=== PATIENT | male | born 1965 | race Two or more races ===

== ENCOUNTER 2023-10-18 09:54 | Outpatient (CLI) | payer OTHER, SELFPAY ==
[2023-10-18 13:48] LABS: Basophils Absolute Auto 0.1 K/mm3 (0.0-0.1); Basophils Percent Auto 0.8 % (0.2-1.2); Eosinophils Absolute Auto 0.5 K/mm3 (0-0.3); Eosinophils Percent Auto 4.6 % (0-4.4); Hemoglobin 15.5 g/dL (14.0-18.0); Immature Granulocyte Absolute 0.04 K/mm3 (0.00-0.031); Immature Granulocyte Percent A 0.4 % (0-0.5); Lymphocytes Absolute Auto 2.48 K/mm3 (0.9-3.2); Lymphocytes Percent Auto 24.7 % (18.3-44.2); Mean Corpuscular HGB Conc 32.3 g/dl (32-36); Mean Corpuscular Hemoglobin 29.1 pg (26-34); Mean Corpuscular Volume 90.1 fl (80-100); Mean Platelet Volume 10.7 fl (7.4-10.4); Monocytes Absolute Auto 0.9 K/mm3 (0.1-0.6); Monocytes Percent Auto 8.4 % (2.6-8.5); Neutrophils Absolute Auto 6.2 K/mm3 (1.3-6.7); Neutrophils Percent Auto 61.1 % (45.5-73.1); Platelet Count Result 297 k/mm3 (150-375); Red Blood Count 5.33 M/mm3 (4.6-6.20); Red Cell Distribution Width 13.1 % (11.5-14.5); White Blood Count 10.1 K/mm3 (4.5-10.0)
[2023-10-18 14:01] LABS: Appearance Urine Clear (Clear); Bacteria Urine None Seen /hpf; Bilirubin Urine Negative (Negative); Blood Urine Non-Hemolyzed Trace (Negative); Color Urine Yellow (Yellow); Glucose Urine UA Negative (Negative); Ketones Urine Negative (Negative); Leukocyte Esterase Ur Negative LEU/UL (Negative); Nitrate Urine Negative (Negative); Non Pathogenic Casts 0-2; Protein Urine Negative (Negative); RBC Urine 0-2 /hpf (0-2); Specific Grav Ur 1.019 (1.001-1.035); Squamous Epithelial Cell Urine None Seen /hpf (Few); WBC Urine 0-5 /hpf (0-3)
[2023-10-18 14:20] LABS: Add Urine Microscopic? YES
[2023-10-18 15:11] LABS: Creatinine Urine 110.8 mg/dL
[2023-10-18 15:16] LABS: MALB Creatinine Ratio 19.9 mg/g (0-30); Microalbumin Urine Random 22.1 mg/L (0-16.7)
[2023-10-18 16:27] LABS: Alanine Aminotransferase 23 U/L (6-50); Albumin Level 4.8 g/dL (3.5-5.1); Alkaline Phosphatase 71 U/L (38-126); Anion Gap 11 mmol/L (4-12); Aspartate Amino Transferase 65 U/L (17-59); Bilirubin,Total 0.8 mg/dL (0.2-1.3); Blood Urea Nitrogen 27 mg/dL (9-20); Calcium 9.1 mg/dL (8.4-10.2); Carbon Dioxide 22 mmol/L (22-30); Chloride 108 mmol/L (98-107); Cholesterol 174 mg/dL (0-200); Estimated Glomerular Filt Rate > 60; Glucose 103 mg/dL (65-110); HDL Direct 32 mg/dL; Potassium 3.9 mmol/L (3.4-5.0); Sodium 141 mmol/L (137-145); Triglycerides 97 mg/dL (<150)
[2023-10-18 16:39] LABS: LDL Cholesterol Direct 120 mg/dL
[2023-10-18 16:57] LABS: Prostate Specific Antigen 1.2 ng/mL (< OR = 4.0)
[2023-10-18 17:06] LABS: HIV 1/2 Ab P24 Ag Result Negative (Negative)
[2023-10-18 18:41] LABS: Hemoglobin A1C 5.4 % (<5.7)
[2023-10-18 18:58] LABS: Hepatitis C Virus Antibody Negative (Negative)
[2023-10-20 01:48] LABS: Hepatitis B Core Ab Total NON-REACTIVE (NON-REACTIVE)
[2023-10-23 04:58] LABS: Herpes Simplex Type 1 DNA PCR NOT DETECTED; Herpes Simplex Type 2 DNA PCR NOT DETECTED
== END 2023-10-18 09:55 | disposition home or self-care (01) ==
LOC: ANHGOSHLAB 09:56
PROVIDERS: PCP Clinical Nurse Specialist; Visit Provider Clinical Nurse Specialist
DX: Z12.5 Encounter for screening for malignant neoplasm of prostate (principal); R35.0 Frequency of micturition; R73.9 Hyperglycemia, unspecified; R39.9 Unspecified symptoms and signs involving the genitourinary system; Z13.220 Encounter for screening for lipoid disorders; Z13.29 Encounter for screening for other suspected endocrine disorder; R03.0 Elevated blood-pressure reading, without diagnosis of hypertension
CPT/HCPCS: 36415; 80053; 80061; 81001; 81003; 82043; 83036; 84153; 84443; 85025; 86703; 86704; 86803; 87529; G0103; G0432

== ENCOUNTER 2025-04-17 09:29 | Outpatient (CLI) | payer OTHER, SELFPAY ==
--- NOTE | ~2025-04-17 | XR_ITS ---
EXAMINATION: XR chest 2V, 04/17/2025 9:42 OPERATIONAL RISK CONSULTANT HISTORY: Other chest pain, chest pain when bending over x 1 month COMPARISON: No comparisons available. Technique: 2 views obtained. Findings: The lungs are clear, no effusion. No pneumothorax. Heart is normal size. Mediastinal and hilar contours are within normal limits. Bony thorax no acute abnormality. Impression: No acute cardiopulmonary abnormality. Reviewed, dictated and finalized at location P. ATIONAL RISK CONSULTANT Impression: No acute cardiopulmonary abnormality.
== END 2025-04-17 09:30 | disposition home or self-care (01) ==
PROVIDERS: PCP Clinical Nurse Specialist; Visit Provider Clinical Nurse Specialist
DX: R07.89 Other chest pain (principal)
CPT/HCPCS: 71046

== ENCOUNTER 2025-04-30 08:49 | Outpatient (CLI) | payer OTHER, SELFPAY ==
--- OUTSIDE RECORDS SUMMARY | 2025-04-30 09:15 | XMS_ITS | Clinical Summary ---
Author Organization [facility] Address [address] [place] [address] Care Team Providers Care Tripe Washer Name Role Phone Lino Lynch MD Primary Care Provider [phone] Source Comments [facility],non-owned Affiliates and Associated Physician Practices is amultiple site organization consisting of ambulatory clinics and hospital sitesin [place], [place], [place]. This disclosure is being madepursuant to the Care Everywhere program and may not contain all information available regarding this patient. Last updated 18.[facility] Allergies No known active allergies Medications * Be aware that medications may not be up to date on this document. Alwaysverify current medications with the patient. No known medications Social History Tobacco Use Types Packs/Day Years Used Date Smoking Tobacco: Never Smokeless Tobacco: Never Sex and Gender Information Value Date Recorded Sex Assigned at Not on file Legal Sex Male 7:02 PM CDT Gender Identity Not on file Sexual Orientation Not on file Last Filed Vital Signs Vital Sign Reading Time Taken Comments Blood Pressure 142/98 08/24/2017 9:59 AM CDT Pulse 95 08/24/2017 9:59 AM CDT Temperature 36.9 C (98.4 F) 08/24/2017 9:59 AM CDT Respiratory Rate 18 08/24/2017 9:59 AM CDT Oxygen Saturation 97% 08/24/2017 9:59 AM CDT Inhaled Oxygen Concentration - - Weight 93 kg (205 lb) 08/24/2017 9:59 AM CDT Height 177.8 cm (5' 10) 08/24/2017 9:59 AM CDT Body Mass Index 29.41 08/24/2017 9:59 AM CDT Plan of Treatment Health Maintenance Due Date Last Done Comments NATALIO (AGES 45-75) - COL ON CA SCREENING 1966 COLON MONITORING 1966 COLONOSCOPY - COLON CA SCREENING 1966 CT COLONOGRAPHY - COLON CA SCREENING 1966 Colorectal Cancer Screening 1966 FIT - COLON CA SCREENING 1966 FLEX SIG - COLON CA SCREENING 1966 LIPID TESTING 1966 HIV SCREENING 1981 HEPATITIS C SCREENING 08/18/1984 DTAP/TDAP/TD VACCINES (1 - Tdap) 1985 HEPATITIS B VACCINE (1 of 3 - 19+ 3-dose series) 1985 PNEUMOCOCCAL VACCINE 50+ (1 of 1 - PCV) 2016 ZOSTER VACCINE (1 of 2) 2016 SCREENING FOR DIABETES 08/24/2017 DEPRESSION SCREENING 05/28/2024 COVID-19 VACCINE (1 - 2024-2 6 season) 2025 INFLUENZA VACCINE (#1) 2025 HIB VACCINE Aged Out No longer eligi ble based on patient's age to complete this topic HPV VACCINE Aged Out No longer eligi ble based on patient's age to complete this topic MENINGOCOCCAL (Group B) VACC INE SHARED DECISION-MAKING Aged Out No longer eligibl e based on patient's age to complete this topic MENINGOCOCCAL GROUPS A/C/Y/W VACCINE Aged Out No longer eligible b ased on patient's age to complete this topic Insurance [employer] Care Teams Tripe Washer Relationship Specialty Start Date End Date Lino Lynch MD [address] [place] [address] PCP - General Internal Medicine 08/24/17
--- OUTSIDE RECORDS SUMMARY | 2025-04-30 09:15 | XMS_ITS | Clinical Summary ---
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 Resolved Problems Problem Noted Date Diagnosed Date Resolved Date Renal colic 07/04/2019 08/01/2019 Ureteral calculus 07/04/2019 08/01/2019 Family History Medical History Relation Comments Cancer Father Cancer Mother Relation Status Comments Father Mother Social History Tobacco Use Types Packs/Day Years Used Date Smoking Tobacco: Never Smokeless Tobacco: Never Alcohol Use Standard Drinks/Week Comments Yes 0 (1 standard drink = 0.6 oz pur e alcohol) occassional Sex and Gender Information Value Date Recorded Sex Assigned at Not on file Legal Sex Male 1:14 PM COMMUNITY SPORTS COORDINATOR Gender Identity Not on file Sexual Orientation Not on file Last Filed Vital Signs Vital Sign Reading Time Taken Comments Blood Pressure 147/94 07/04/2019 2:15 PM COMMUNITY SPORTS COORDINATOR Pulse 69 07/04/2019 2:15 PM COMMUNITY SPORTS COORDINATOR Temperature 36.9 C (98.5 F) 07/02/2019 1:23 PM COMMUNITY SPORTS COORDINATOR Respiratory Rate 18 07/04/2019 2:15 PM COMMUNITY SPORTS COORDINATOR Oxygen Saturation 97% 07/02/2019 3:36 PM COMMUNITY SPORTS COORDINATOR Inhaled Oxygen Concentration - - Weight 95.1 kg (209 lb 11.2 oz) 07/04/2019 2:15 PM COMMUNITY SPORTS COORDINATOR Height 177.8 cm (5' 10) 07/02/2019 1:23 PM COMMUNITY SPORTS COORDINATOR Body Mass Index 30.09 07/02/2019 1:23 PM COMMUNITY SPORTS COORDINATOR Plan of Treatment Health Maintenance Due Date Last Done Comments Colorectal Cancer Screening Colonoscopy (10 Years) 1966 Annual Physical 1969 Hepatitis C 1984 DTaP, Tdap and Td Vaccines ( 1 - Tdap) 1985 Hepatitis B Vaccines (1 of 3 - 19+ 3-dose series) 1985 Pneumococcal Vaccine: 50+ Ye ars (1 of 1 - PCV) 2016 Zoster Vaccines (1 of 2) 2016 COVID-19 Vaccine (1 - 2024-2 6 season) 2025 Influenza Adult (#1) 2025 Hepatitis A Vaccines Aged Out No long er eligible based on patient's age to complete this topic Meningococcal B Vaccine Aged Out No l onger eligible based on patient's age to complete this topic Meningococcal Vaccine Aged Out No moustapha maría eligible based on patient's age to complete this topic RSV Immunizations Under 20 Months Aged Out No longer eligible based on patient's age to complete this topic Insurance [employer] [place] Care Teams Sports Centre Manager Relationship Specialty Start Date End Date Reema Milton MD [address] [place] [address] PCP - General FAMILY PRACTICE 07/02/19
[2025-04-30 14:23] LABS: Hematocrit 48.3 % (42.0-52.0); Hemoglobin 15.7 g/dL (14.0-18.0); Immature Granulocyte Percent A 0.2 % (0-0.5); Lymphocytes Absolute Auto 2.55 K/mm3 (0.9-3.2); Mean Corpuscular HGB Conc 32.5 g/dl (32-36); Mean Corpuscular Hemoglobin 29.0 pg (26-34); Mean Corpuscular Volume 89.3 fl (80-100); Nucleated Red Blood Cells Absolute Auto 0.000 K/mm3 (0.0-0.012); Nucleated Red Blood Cells Perc 0.0 % (0.0-0.2); Platelet Count Result 291 k/mm3 (150-375); Red Blood Count 5.41 M/mm3 (4.6-6.20); White Blood Count 9.9 K/mm3 (4.5-10.0)
[2025-04-30 14:31] LABS: Alanine Aminotransferase 25 U/L (6-50); Albumin Level 4.5 g/dL (3.5-5.1); Alkaline Phosphatase 72 U/L (38-126); Anion Gap 5 mmol/L (4-12); Aspartate Amino Transferase 54 U/L (17-59); Bilirubin,Total 0.8 mg/dL (0.2-1.3); Blood Urea Nitrogen 26 mg/dL (9-20); Calcium 9.5 mg/dL (8.4-10.2); Carbon Dioxide 27 mmol/L (22-30); Chloride 107 mmol/L (98-107); Cholesterol 208 mg/dL (0-200); Estimated Glomerular Filt Rate > 60; Glucose 91 mg/dL (65-110); HDL Direct 32 mg/dL; Potassium 4.3 mmol/L (3.4-5.0); Sodium 139 mmol/L (137-145); Total Protein 8.0 g/dL (6.3-8.2); Triglycerides 145 mg/dL (<150)
[2025-04-30 15:07] LABS: Prostate Specific Antigen 1.2 ng/mL (< OR = 4.0)
[2025-04-30 16:01] LABS: Hemoglobin A1C 5.7 % (<5.7)
[2025-04-30 16:05] LABS: MALB Creatinine Ratio 5.1 mg/g (0-30)
== END 2025-04-30 08:50 | disposition home or self-care (01) ==
LOC: ANHGOSHLAB 08:50
PROVIDERS: PCP Clinical Nurse Specialist; Visit Provider Clinical Nurse Specialist
DX: R74.01 Elevation of levels of liver transaminase levels (principal); R03.0 Elevated blood-pressure reading, without diagnosis of hypertension; R73.01 Impaired fasting glucose; Z13.220 Encounter for screening for lipoid disorders; Z13.29 Encounter for screening for other suspected endocrine disorder; Z12.5 Encounter for screening for malignant neoplasm of prostate
CPT/HCPCS: 36415; 80053; 80061; 82043; 83036; 84153; 85025; G0103

== ENCOUNTER 2025-05-18 09:07 | Outpatient (CLI) | payer OTHER, SELFPAY ==
--- OUTSIDE RECORDS SUMMARY | 2025-05-18 09:54 | XMS_ITS | Clinical Summary ---
Author Organization [facility] [employer] Address [address] [place] [address] Care Team Providers Care Airplane Dispatch Clerk Name Role Phone Lino Lynch MD Primary Care Provider [phone] Source Comments [facility] [employer],non-owned Affiliates and Associated Physician Practices is amultiple site organization consisting of ambulatory clinics and hospital sitesin [place], [place], [place] and [place]. This disclosure is being madepursuant to the Care Everywhere program and may not contain all information available regarding this patient. Last updated 18.[facility] [employer] Allergies No known active allergies Medications * [...] complete this topic Insurance [employer]ET[employer] Care Teams Airplane Dispatch Clerk Relationship Specialty Start Date End Date Lino Lynch MD [address] [place] [address] PCP - General Internal Medicine 08/24/17
--- OUTSIDE RECORDS SUMMARY | 2025-05-18 09:54 | XMS_ITS | Clinical Summary ---
Author Organization [facility] Address [address] [place] [address] Care Team Providers Care Ramp Service Agent Name Role Phone Reema Milton MD Primary Care Provider [phone] Allergies No known active allergies Medications No [...] on file Legal Sex Male 1:14 PM BREAST SPLITTER Gender Identity Not on file Sexual Orientation Not on file Last Filed Vital Signs Vital Sign Reading Time Taken Comments Blood Pressure 147/94 07/04/2019 2:15 PM BREAST SPLITTER Pulse 69 07/04/2019 2:15 PM BREAST SPLITTER Temperature 36.9 C (98.5 F) 07/02/2019 1:23 PM BREAST SPLITTER Respiratory Rate 18 07/04/2019 2:15 PM BREAST SPLITTER Oxygen Saturation 97% 07/02/2019 3:36 PM BREAST SPLITTER Inhaled Oxygen Concentration - - Weight 95.1 kg (209 lb 11.2 oz) 07/04/2019 2:15 PM BREAST SPLITTER Height 177.8 cm (5' 10) 07/02/2019 1:23 PM BREAST SPLITTER Body Mass Index 30.09 07/02/2019 1:23 PM BREAST SPLITTER Plan of Treatment Health Maintenance Due Date [...] this topic Insurance [employer] [place] Care Teams Ramp Service Agent Relationship Specialty Start Date End Date Reema Milton MD [address] [place] [address] PCP - General FAMILY PRACTICE 07/02/19
[2025-05-18 14:16] LABS: Anion Gap 8 mmol/L (4-12); Blood Urea Nitrogen 24 mg/dL (9-20); Calcium 9.6 mg/dL (8.4-10.2); Carbon Dioxide 26 mmol/L (22-30); Chloride 107 mmol/L (98-107); Estimated Glomerular Filt Rate > 60; Glucose 101 mg/dL (65-110); Potassium 4.1 mmol/L (3.4-5.0); Sodium 141 mmol/L (137-145)
== END 2025-05-18 09:08 | disposition home or self-care (01) ==
LOC: ANHGOSHLAB 09:08
PROVIDERS: PCP Clinical Nurse Specialist; Visit Provider Clinical Nurse Specialist
DX: I10 Essential (primary) hypertension (principal)
CPT/HCPCS: 36415; 80048